=== PATIENT | female | born 1955 | race Caucasian/White ===

== ENCOUNTER 2016-06-22 01:50 | Observation (INO) | payer OTHER ==
[~2016-06-22] VITALS: Ht 165.1 cm; Wt 91.1 kg
[~2016-06-22 01:50] MED LIST: ADULT LOW DOSE81 M1 PO; ADVAIR 250/501 DISK IH; ADVAIR HFA120 INHALA IH; ALAVERT10 MG PO; ALTERA NEBULIZ1 EACH MC; ASPIR-LOW81 MG PO; AVENTYL,PAMELOR50 MG PO; Advair HFA 115/21 IH; Antivert PO; Aspirin E.C. PO; CARDIZEM60 MG PO; CEFTIN500 MG PO; CETIRIZINE HCL10 M2 PO; CYCLOBENZAPRINE10 MG PO; Ceftin PO; DILANTIN30 MG PO; EPIPEN ADU0.3 MG/0.3 IM; ERGOCALCIF50000 UNIT PO; FLEXERIL10 MG PO; FLONASE16 G1 BOTH NARES; Flexeril PO; GABAPENTIN400 MG PO; GABAPENTIN800 MG PO; GEMFIBROZIL600 MG PO; GLUCOSAMINE1000 MG PO; HALOBETASOL PRO15 G1 TP; LAMICTAL XR200 MG PO; LAMICTAL200 MG PO; LIDODERM 5% P1 PATCH TD; LISINOPRIL40 MG PO; LOPID600 MG PO; LaMICtal PO; LaMICtal XR PO; Lopid PO; Lopressor PO; MECLIZINE HCL25 MG PO; MELOXICAM15 MG PO; METOPROLOL TART25 MG PO; METOPROLOL TART50 MG PO; MORPHINE SULFAT30 M5; MORPHINE SULFAT30 M5 PO; MS CONTIN,ORAMO15 M1 PO; OMEPRAZOLE20 M2 PO; OXYCODONE HCL10 MG PO; PERCOCET 10/1 TABLET PO; PERCOCET 5/31 TABLET PO; PHENERGAN25 MG PR; PHENOBARBITAL64.8 MG PO; PHENYTEK300 MG PO; PRAVACHOL40 MG PO; PRAVASTATIN SOD40 MG PO; PREDNISONE10 MG PO; PREDNISONE20 MG PO; PREVACID30 MG PO; PROAIR HFA8.5 GM IH; PROMETHAZINE HC25 M1 PO; Percocet 5/325,Endoc PO; Pravachol PO; PriLOSEC PO; RELPAX40 MG PO; Robaxin PO; Tylenol Regular Stre PO; XARELTO20 MG PO; ZESTRIL,PRINIVI20 MG PO; ZOFRAN4 MG PO; ZYRTEC10 M1 PO; ZYRTEC10 M2 PO; ZYRTEC10 M3 PO; Zocor PO
[2016-06-22 03:27] LABS: HEMATOCRIT 37.9 % (36.0-46.0); MCH 29.5 PG (29.0-34.0); MCHC 33.2 G/DL (30.0-36.0); MCV 88.8 FL (83-99); MEAN PLAT.VOLUME 9.7 uM^3 (9.5-12.4); PLATELET COUNT 364 K/uL (156-360); RBC DIS.WIDTH-CV 13.2 % (11.8-14.6); RBC DIS.WIDTH-SD 42.7 % (39-53); RED BLOOD COUNT 4.27 M/uL (3.80-5.20); WHITE BLOOD COUNT 10.9 K/uL (4.1-10.2)
[2016-06-22 03:43] LABS: D-DIMER ELISA 0.19 mg/L FEU (< 0.57); INTER. NORMALIZED RATIO 1.2; PROTHROMBIN TIME 11.8 (9.2-11.2); PTT 30.3 (25-32)
[2016-06-22 03:45] LABS: CHLORIDE 107 mEq/L (99-109); POTASSIUM 4.4 mEq/L (3.7-5.4); SODIUM 142 mEq/L (136-147)
[2016-06-22 03:47] LABS: GLUCOSE 126 mg/dL (70-99)
[2016-06-22 03:49] LABS: ANION GAP 13 MEQ/L (2-14); TOTAL BILIRUBIN 0.1 mg/dL (0.0-1.0); TROP-I INTERPRETATION NEGATIVE; TROPONIN-I < 0.01 ng/mL (0.0-0.30)
[2016-06-22 03:51] LABS: ALKALINE PHOSPHATASE 90 IU/L (3-129); GFR ESTIMATE (CALCULATED) > 59 mL/min/
[2016-06-22 03:52] LABS: UREA NITROGEN (BUN) 25 mg/dL (9-23)
[2016-06-22 03:54] LABS: LIPASE 28 U/L (1.0-51.0)
[2016-06-22 03:55] LABS: CREATINE KINASE 99 IU/L (1-294); TOTAL CK 99 IU/L (1-294)
[2016-06-22 04:00] LABS: CK-MB 1.8 ng/mL (0.0-4.9)
[2016-06-22] MEDS ORDERED: FENTANYL1 EAC5 TD (04:22)
[2016-06-22] MEDS ORDERED: OMEPRAZOLE20 M2 PO (04:26)
[2016-06-22] MEDS ORDERED: VENTOLIN HFA18 GM IH (04:27)
[2016-06-22 05:29] LABS: HDL CHOLESTEROL 43 MG/DL (Desirable>=50); LDL CHOLESTEROL 101 mg/dL (Desirable<100); NON-HDL CHOLESTEROL 131 mg/dL (Desirable<160); SAMPLE HEMOLYSIS CHECK 1; SAMPLE ICTERIC CHECK 0; SAMPLE LIPEMIA CHECK 0; TOTAL CHOLESTEROL 174 mg/dL (Desirable<200); TRIGLYCERIDES 148 MG/DL (Normal: <150)
[2016-06-22 08:03] LABS: ADD MIUA? YES; BILIRUBIN NEGATIVE; BLOOD NEGATIVE; COLOR YELLOW ((YELLOW)); GLUCOSE (STRIP) NEGATIVE; KETONES NEGATIVE; LEUKOCYTES SMALL; NITRITE NEGATIVE; PROTEIN (STRIP) NEGATIVE; SPECIFIC GRAVITY 1.017 (1.000-1.030); UROBILINOGEN 0.2 MG/DL (0.2-1.0)
[2016-06-22 08:30] LABS: AMPHETAMINES QUANT VALUE 0 NG/ML; BARBITUATES QUANT VALUE 0 NG/ML; BENZODIAZEPINES QUANT VALUE 0 NG/ML; BENZODIAZEPINES, URINE SCREEN Negative (200 ng/mL); MARIJUANA QUANT VALUE 0 NG/ML; OPIATES QUANTITATIVE VALUE 0 NG/ML; PHENCYCLIDINE QUANT VALUE 0 NG/ML
[2016-06-22 08:48] LABS: BACTERIA NONE SEEN /HPF; EPITHELIAL CELLS NONE SEEN /HPF; MUCUS TRACE /LPF; RED BLOOD CELLS 0-5 /HPF (0-5); UCUL ADDED? NO; WHITE BLOOD CELLS 15-20 /HPF (0-5)
[2016-06-22] MEDS ORDERED: CYCLOBENZAPRINE10 MG PO (09:47)
[2016-06-22] MEDS ORDERED: AMBIEN10 MG PO (09:48)
[2016-06-22 10:25] LABS: TROP-I INTERPRETATION NEGATIVE; TROPONIN-I < 0.01 ng/mL (0.0-0.30)
[2016-06-22 10:52] VITALS: BP 149/69
[2016-06-22 16:48] LABS: TROP-I INTERPRETATION NEGATIVE; TROPONIN-I < 0.01 ng/mL (0.0-0.30)
[2016-06-22 20:30] VITALS: BP 119/57
[2016-06-23] VITALS: BP 111/53
[2016-06-23 03:00] VITALS: BP 127/66
[2016-06-23 05:24] LABS: BASOPHIL COUNT 0.1 K/uL (0-0.1); EOSINOPHIL COUNT 0.1 K/uL (0-0.3); HEMATOCRIT 33.1 % (36.0-46.0); IMMATURE GRANULOCYTE (%) 0.2 % (0.0-0.7); INSTRUMENT ABS NEUTROPHIL CT 5.7 K/uL; LYMPHOCYTE COUNT 2.6 K/uL (1.0-2.8); MCH 29.3 PG (29.0-34.0); MCHC 32.9 G/DL (30.0-36.0); MEAN PLAT.VOLUME 9.5 uM^3 (9.5-12.4); MONOCYTE (%) 7.3 % (3-12); MONOCYTE COUNT 0.7 K/uL (0-0.8); NEUTROPHIL (%) 62.1 % (45-76); NEUTROPHIL COUNT 5.7 K/uL (1.8-6.4); PLATELET COUNT 330 K/uL (156-360); RBC DIS.WIDTH-CV 13.2 % (11.8-14.6); RBC DIS.WIDTH-SD 43.6 % (39-53); RED BLOOD COUNT 3.72 M/uL (3.80-5.20); WHITE BLOOD COUNT 9.1 K/uL (4.1-10.2)
[2016-06-23 05:51] LABS: ALKALINE PHOSPHATASE 78 IU/L (3-129); ANION GAP 11 MEQ/L (2-14); CHLORIDE 107 MEQ/L (99-109); GFR ESTIMATE (CALCULATED) > 59 mL/min/; GLUCOSE 97 mg/dL (70-99); POTASSIUM 4.5 MEQ/L (3.7-5.4); SAMPLE HEMOLYSIS CHECK 0; SAMPLE ICTERIC CHECK 0; SAMPLE LIPEMIA CHECK 0; SODIUM 141 MEQ/L (136-147); TOTAL BILIRUBIN 0.3 MG/DL (0.0-1.0); UREA NITROGEN (BUN) 16 mg/dL (9-23)
[2016-06-23 07:05] VITALS: BP 152/70
[2016-06-23] MEDS ORDERED: BUSPAR10 MG PO (08:28)
[2016-06-23] MEDS ORDERED: EFFEXOR37.5 MG PO (08:28)
== END 2016-06-23 10:03 | disposition home or self-care (01) ==
LOC: EME 01:50 → EDOF 04:18 → 5WEST 10:39
PROVIDERS: Emergency Medicine; Hospitalist; Physician Assistant Medical
DX: R07.89 Other chest pain (principal); F41.9 Anxiety disorder, unspecified; R00.2 Palpitations; R11.0 Nausea; R41.0 Disorientation, unspecified; R42 Dizziness and giddiness; R53.1 Weakness; Z95.0 Presence of cardiac pacemaker; Z79.01 Long term (current) use of anticoagulants; F31.9 Bipolar disorder, unspecified; G89.4 Chronic pain syndrome; I11.9 Hypertensive heart disease without heart failure; J44.9 Chronic obstructive pulmonary disease, unspecified; K21.9 Gastro-esophageal reflux disease without esophagitis; G40.909 Epilepsy, unspecified, not intractable, without status epilepticus; E78.5 Hyperlipidemia, unspecified; M54.9 Dorsalgia, unspecified; I27.2 Other secondary pulmonary hypertension; I65.29 Occlusion and stenosis of unspecified carotid artery; E66.9 Obesity, unspecified; G47.30 Sleep apnea, unspecified; I48.0 Paroxysmal atrial fibrillation; Z68.33 Body mass index [BMI] 33.0-33.9, adult; Z87.891 Personal history of nicotine dependence
CPT/HCPCS: 70450; 71020; 80053; 80061; 80306 90; 81003; 82550; 82553; 82948; 83690; 84484; 85025; 85027; 85379; 85610; 85730; 93005; 94640; 99202; 99281; 99285; G0378; J2405; J3010; J7030

== ENCOUNTER 2016-07-08 05:30 | Inpatient (IN) | payer OTHER ==
[2016-07-08] VITALS (13 sets, daily range): BP systolic 112–172; BP diastolic 68–123
[~2016-07-08] VITALS: Ht 165.1 cm; Wt 89.8 kg
[~2016-07-08 05:30] MED LIST changes: +AMBIEN10 MG PO; +BUSPAR10 MG PO; +EFFEXOR37.5 MG PO; +FENTANYL1 EAC5 TD; +VENTOLIN HFA18 GM IH
[2016-07-08 06:34] LABS: CHLORIDE 113 mEq/L (99-109); POTASSIUM 4.5 mEq/L (3.7-5.4); SODIUM 142 mEq/L (136-147)
[2016-07-08 06:37] LABS: GLUCOSE 119 mg/dL (70-99)
[2016-07-08 06:38] LABS: ANION GAP 9 MEQ/L (2-14); TOTAL BILIRUBIN 0.1 mg/dL (0.0-1.0)
[2016-07-08 06:40] LABS: ALKALINE PHOSPHATASE 55 IU/L (3-129); GFR ESTIMATE (CALCULATED) > 59 mL/min/
[2016-07-08 06:41] LABS: UREA NITROGEN (BUN) 43 mg/dL (9-23)
[2016-07-08 06:42] LABS: DIRECT BILIRUBIN 0.1 mg/dL (0.0-0.3)
[2016-07-08 06:54] LABS: INTER. NORMALIZED RATIO 1.3; PROTHROMBIN TIME 13.4 (9.2-11.2)
[2016-07-08 07:06] LABS: HEMATOCRIT 11.3 % (36.0-46.0); MCH 30.6 PG (29.0-34.0); MCHC 32.7 G/DL (30.0-36.0); MCV 93.4 FL (83-99); MEAN PLAT.VOLUME 9.9 uM^3 (9.5-12.4); PLATELET COUNT 249 K/uL (156-360); RBC DIS.WIDTH-CV 14.7 % (11.8-14.6); RBC DIS.WIDTH-SD 47.3 % (39-53); RED BLOOD COUNT 1.21 M/uL (3.80-5.20); WHITE BLOOD COUNT 14.7 K/uL (4.1-10.2)
[2016-07-08] MEDS ORDERED: LAMICTAL XR200 MG PO (11:20)
[2016-07-08] MEDS ORDERED: OXYCODONE HCL10 MG PO (16:01)
[2016-07-08] MEDS ORDERED: MOBIC15 MG PO (16:02)
[2016-07-08] MEDS ORDERED: EFFEXOR37.5 MG PO (16:02)
[2016-07-08] MEDS ORDERED: LUNESTA3 MG PO (16:02)
[2016-07-08] MEDS ORDERED: ADVAIR HFA120 INHALA IH (16:03)
[2016-07-08] MEDS ORDERED: EPIPEN ADU0.3 MG/0.3 IM (16:03)
[2016-07-08 17:01] LABS: METH RESISTANT S AUREUS PCR NEGATIVE (NEGATIVE)
[2016-07-08 17:02] LABS: PROBE CHECK PASS; SPECIMEN PROCESSING CONTROL PASS
[2016-07-08 18:36] LABS: HEMATOCRIT 29.3 % (36.0-46.0); MCV 85.7 FL (83-99)
[2016-07-09] VITALS (22 sets, daily range): BP systolic 105–190; BP diastolic 52–96
[2016-07-09 07:44] LABS: BASOPHIL COUNT 0.1 K/uL (0-0.1); EOSINOPHIL (%) 1.5 % (0-5); EOSINOPHIL COUNT 0.2 K/uL (0-0.3); HEMATOCRIT 31.4 % (36.0-46.0); IMMATURE GRANULOCYTE (%) 2.1 % (0.0-0.7); IMMATURE GRANULOCYTE COUNT 0.3 K/uL; INSTRUMENT ABS NEUTROPHIL CT 7.7 K/uL; LYMPHOCYTE COUNT 2.8 K/uL (1.0-2.8); MCH 29.1 PG (29.0-34.0); MCHC 34.4 G/DL (30.0-36.0); MCV 84.6 FL (83-99); MEAN PLAT.VOLUME 9.2 uM^3 (9.5-12.4); MONOCYTE COUNT 0.7 K/uL (0-0.8); NEUTROPHIL (%) 66.1 % (45-76); NEUTROPHIL COUNT 7.7 K/uL (1.8-6.4); NRBC (%) 0.3 /100 WBC (0-0); PLATELET COUNT 183 K/uL (156-360); RBC DIS.WIDTH-CV 15.3 % (11.8-14.6); RBC DIS.WIDTH-SD 45.8 % (39-53); WHITE BLOOD COUNT 11.7 K/uL (4.1-10.2)
[2016-07-09 07:50] LABS: RED BLOOD COUNT 3.71 M/uL (3.80-5.20)
[2016-07-09 08:26] LABS: ANION GAP 8 MEQ/L (2-14); CHLORIDE 110 MEQ/L (99-109); GFR ESTIMATE (CALCULATED) > 59 mL/min/; GLUCOSE 105 mg/dL (70-99); MAGNESIUM 1.9 mg/dl (1.3-2.7); POTASSIUM 4.1 MEQ/L (3.7-5.4); SAMPLE HEMOLYSIS CHECK 0; SAMPLE ICTERIC CHECK 0; SAMPLE LIPEMIA CHECK 0; SODIUM 142 MEQ/L (136-147)
[2016-07-09 08:29] LABS: UREA NITROGEN (BUN) 20 mg/dL (9-23)
[2016-07-09 12:59] LABS: IRON 114 MCG/DL (35-150)
[2016-07-09 13:06] LABS: FERRITIN 100 NG/ML (10-291)
[2016-07-09 20:34] LABS: HEMATOCRIT 28.8 % (36.0-46.0); MCH 29.6 PG (29.0-34.0); MCHC 34.4 G/DL (30.0-36.0); MCV 86.2 FL (83-99); MEAN PLAT.VOLUME 9.2 uM^3 (9.5-12.4); PLATELET COUNT 164 K/uL (156-360); RBC DIS.WIDTH-CV 15.7 % (11.8-14.6); RBC DIS.WIDTH-SD 47.9 % (39-53); RED BLOOD COUNT 3.34 M/uL (3.80-5.20); WHITE BLOOD COUNT 9.5 K/uL (4.1-10.2)
[2016-07-10 00:50] LABS: TROP-I INTERPRETATION NEGATIVE; TROPONIN-I 0.12 ng/mL (0.0-0.30)
[2016-07-10 04:20] VITALS: BP 115/52
[2016-07-10 06:16] LABS: HEMATOCRIT 29.6 % (36.0-46.0); MCH 29.2 PG (29.0-34.0); MCHC 33.4 G/DL (30.0-36.0); MCV 87.3 FL (83-99); MEAN PLAT.VOLUME 9.4 uM^3 (9.5-12.4); PLATELET COUNT 184 K/uL (156-360); RBC DIS.WIDTH-CV 15.7 % (11.8-14.6); RBC DIS.WIDTH-SD 48.9 % (39-53); RED BLOOD COUNT 3.39 M/uL (3.80-5.20); WHITE BLOOD COUNT 8.4 K/uL (4.1-10.2)
[2016-07-10 06:43] LABS: TROP-I INTERPRETATION NEGATIVE
[2016-07-10 07:04] LABS: ANION GAP 10 MEQ/L (2-14); CHLORIDE 107 MEQ/L (99-109); SAMPLE HEMOLYSIS CHECK 1; SAMPLE ICTERIC CHECK 0; SAMPLE LIPEMIA CHECK 0; SODIUM 142 MEQ/L (136-147)
[2016-07-10 07:05] LABS: POTASSIUM 3.9 MEQ/L (3.7-5.4)
[2016-07-10 07:11] LABS: GFR ESTIMATE (CALCULATED) > 59 mL/min/; GLUCOSE 90 mg/dL (70-99); UREA NITROGEN (BUN) 13 mg/dL (9-23)
[2016-07-10 08:00] VITALS: BP 139/63
[2016-07-10 12:00] VITALS: BP 112/53
[2016-07-10 12:43] LABS: TROP-I INTERPRETATION NEGATIVE; TROPONIN-I 0.08 ng/mL (0.0-0.30)
[2016-07-10 18:00] VITALS: BP 128/52
[2016-07-10 20:00] VITALS: BP 126/59
[2016-07-11] VITALS (8 sets, daily range): BP systolic 106–161; BP diastolic 43–78
[2016-07-11 06:13] LABS: EOSINOPHIL (%) 4.1 % (0-5); EOSINOPHIL COUNT 0.3 K/uL (0-0.3); HEMATOCRIT 29.1 % (36.0-46.0); IMMATURE GRANULOCYTE (%) 1.2 % (0.0-0.7); IMMATURE GRANULOCYTE COUNT 0.1 K/uL; INSTRUMENT ABS NEUTROPHIL CT 3.4 K/uL; LYMPHOCYTE COUNT 1.8 K/uL (1.0-2.8); MCH 29.5 PG (29.0-34.0); MCV 86.6 FL (83-99); MEAN PLAT.VOLUME 9.2 uM^3 (9.5-12.4); MONOCYTE (%) 8.4 % (3-12); MONOCYTE COUNT 0.5 K/uL (0-0.8); NEUTROPHIL (%) 56.7 % (45-76); NEUTROPHIL COUNT 3.4 K/uL (1.8-6.4); PLATELET COUNT 225 K/uL (156-360); RBC DIS.WIDTH-SD 46.4 % (39-53); RED BLOOD COUNT 3.36 M/uL (3.80-5.20); WHITE BLOOD COUNT 6.1 K/uL (4.1-10.2)
[2016-07-11 06:15] LABS: ANION GAP 7 MEQ/L (2-14); CHLORIDE 106 MEQ/L (99-109); GFR ESTIMATE (CALCULATED) > 59 mL/min/; GLUCOSE 91 mg/dL (70-99); POTASSIUM 3.5 MEQ/L (3.7-5.4); SAMPLE HEMOLYSIS CHECK 0; SAMPLE ICTERIC CHECK 0; SAMPLE LIPEMIA CHECK 0; SODIUM 140 MEQ/L (136-147); UREA NITROGEN (BUN) 9 mg/dL (9-23)
[2016-07-12 03:25] VITALS: BP 115/56
[2016-07-12 05:29] LABS: EOSINOPHIL (%) 2.1 % (0-5); EOSINOPHIL COUNT 0.2 K/uL (0-0.3); HEMATOCRIT 28.7 % (36.0-46.0); IMMATURE GRANULOCYTE (%) 0.5 % (0.0-0.7); INSTRUMENT ABS NEUTROPHIL CT 4.9 K/uL; MCH 29.1 PG (29.0-34.0); MCHC 33.4 G/DL (30.0-36.0); MEAN PLAT.VOLUME 9.2 uM^3 (9.5-12.4); MONOCYTE (%) 7.6 % (3-12); MONOCYTE COUNT 0.6 K/uL (0-0.8); NEUTROPHIL (%) 63.9 % (45-76); NEUTROPHIL COUNT 4.9 K/uL (1.8-6.4); PLATELET COUNT 249 K/uL (156-360); WHITE BLOOD COUNT 7.7 K/uL (4.1-10.2)
[2016-07-12 05:40] LABS: ANION GAP 7 MEQ/L (2-14); CHLORIDE 106 MEQ/L (99-109); GFR ESTIMATE (CALCULATED) > 59 mL/min/; POTASSIUM 3.5 MEQ/L (3.7-5.4); SAMPLE HEMOLYSIS CHECK 0; SAMPLE ICTERIC CHECK 0; SAMPLE LIPEMIA CHECK 0; SODIUM 142 MEQ/L (136-147); UREA NITROGEN (BUN) 12 mg/dL (9-23)
[2016-07-12 05:49] LABS: GLUCOSE 116 mg/dL (70-99)
[2016-07-12 07:19] VITALS: BP 120/59
[2016-07-12 11:17] VITALS: BP 125/61
[2016-07-12 15:12] VITALS: BP 111/53
[2016-07-12 19:39] VITALS: BP 115/54
[2016-07-13] VITALS (8 sets, daily range): BP systolic 123–157; BP diastolic 58–74
[2016-07-13 07:44] LABS: HEMATOCRIT 29.6 % (36.0-46.0); MCH 29.1 PG (29.0-34.0); MCHC 32.8 G/DL (30.0-36.0); MCV 88.9 FL (83-99); MEAN PLAT.VOLUME 8.7 uM^3 (9.5-12.4); PLATELET COUNT 288 K/uL (156-360); RBC DIS.WIDTH-CV 15.1 % (11.8-14.6); RBC DIS.WIDTH-SD 46.5 % (39-53); RED BLOOD COUNT 3.33 M/uL (3.80-5.20); WHITE BLOOD COUNT 6.8 K/uL (4.1-10.2)
[2016-07-13 08:28] LABS: ANION GAP 9 MEQ/L (2-14); CHLORIDE 107 MEQ/L (99-109); GFR ESTIMATE (CALCULATED) > 59 mL/min/; GLUCOSE 100 mg/dL (70-99); MAGNESIUM 1.9 mg/dl (1.3-2.7); POTASSIUM 4.4 MEQ/L (3.7-5.4); SAMPLE HEMOLYSIS CHECK 2; SAMPLE ICTERIC CHECK 0; SAMPLE LIPEMIA CHECK 0; SODIUM 141 MEQ/L (136-147); UREA NITROGEN (BUN) 11 mg/dL (9-23)
[2016-07-14] VITALS (7 sets, daily range): BP systolic 125–167; BP diastolic 65–94
[2016-07-14 06:09] LABS: EOSINOPHIL COUNT 0.3 K/uL (0-0.3); HEMATOCRIT 32.2 % (36.0-46.0); IMMATURE GRANULOCYTE (%) 0.4 % (0.0-0.7); INSTRUMENT ABS NEUTROPHIL CT 3.9 K/uL; LYMPHOCYTE COUNT 2.3 K/uL (1.0-2.8); MCH 29.4 PG (29.0-34.0); MCHC 33.5 G/DL (30.0-36.0); MCV 87.7 FL (83-99); MEAN PLAT.VOLUME 8.8 uM^3 (9.5-12.4); MONOCYTE (%) 7.4 % (3-12); MONOCYTE COUNT 0.5 K/uL (0-0.8); NEUTROPHIL (%) 55.3 % (45-76); NEUTROPHIL COUNT 3.9 K/uL (1.8-6.4); PLATELET COUNT 342 K/uL (156-360); RBC DIS.WIDTH-CV 14.5 % (11.8-14.6); RBC DIS.WIDTH-SD 44.9 % (39-53); RED BLOOD COUNT 3.67 M/uL (3.80-5.20)
[2016-07-14 06:57] LABS: ANION GAP 6 MEQ/L (2-14); CHLORIDE 104 MEQ/L (99-109); GFR ESTIMATE (CALCULATED) > 59 mL/min/; GLUCOSE 91 mg/dL (70-99); POTASSIUM 4.4 MEQ/L (3.7-5.4); SAMPLE HEMOLYSIS CHECK 0; SAMPLE ICTERIC CHECK 0; SAMPLE LIPEMIA CHECK 0; SODIUM 141 MEQ/L (136-147); UREA NITROGEN (BUN) 11 mg/dL (9-23)
[2016-07-15 03:48] VITALS: BP 147/72
[2016-07-15 07:04] VITALS: BP 150/65
[2016-07-15 07:29] LABS: EOSINOPHIL (%) 4.8 % (0-5); EOSINOPHIL COUNT 0.3 K/uL (0-0.3); HEMATOCRIT 32.6 % (36.0-46.0); IMMATURE GRANULOCYTE (%) 0.2 % (0.0-0.7); INSTRUMENT ABS NEUTROPHIL CT 3.6 K/uL; LYMPHOCYTE COUNT 2.1 K/uL (1.0-2.8); MCH 29.8 PG (29.0-34.0); MCV 87.6 FL (83-99); MONOCYTE (%) 6.1 % (3-12); MONOCYTE COUNT 0.4 K/uL (0-0.8); NEUTROPHIL (%) 55.7 % (45-76); NEUTROPHIL COUNT 3.6 K/uL (1.8-6.4); PLATELET COUNT 395 K/uL (156-360); RBC DIS.WIDTH-CV 14.6 % (11.8-14.6); RBC DIS.WIDTH-SD 45.3 % (39-53); RED BLOOD COUNT 3.72 M/uL (3.80-5.20); WHITE BLOOD COUNT 6.5 K/uL (4.1-10.2)
[2016-07-15 07:54] LABS: ANION GAP 10 MEQ/L (2-14); CHLORIDE 102 MEQ/L (99-109); GFR ESTIMATE (CALCULATED) > 59 mL/min/; GLUCOSE 122 mg/dL (70-99); SAMPLE HEMOLYSIS CHECK 1; SAMPLE ICTERIC CHECK 0; SAMPLE LIPEMIA CHECK 0; SODIUM 139 MEQ/L (136-147); UREA NITROGEN (BUN) 15 mg/dL (9-23)
[2016-07-15 07:55] LABS: POTASSIUM 4.3 MEQ/L (3.7-5.4)
[2016-07-15 08:30] LABS: MAGNESIUM 1.9 mg/dl (1.3-2.7)
[2016-07-15 11:00] VITALS: BP 176/77
[2016-07-15 15:21] VITALS: BP 179/71
[2016-07-15 19:47] VITALS: BP 132/56
[2016-07-15 23:45] VITALS: BP 132/76
[2016-07-16 03:45] VITALS: BP 149/70
[2016-07-16 07:34] LABS: EOSINOPHIL (%) 3.7 % (0-5); EOSINOPHIL COUNT 0.3 K/uL (0-0.3); HEMATOCRIT 33.7 % (36.0-46.0); IMMATURE GRANULOCYTE (%) 0.1 % (0.0-0.7); INSTRUMENT ABS NEUTROPHIL CT 4.5 K/uL; LYMPHOCYTE COUNT 2.4 K/uL (1.0-2.8); MCH 29.6 PG (29.0-34.0); MCHC 33.2 G/DL (30.0-36.0); MCV 88.9 FL (83-99); MEAN PLAT.VOLUME 8.8 uM^3 (9.5-12.4); MONOCYTE COUNT 0.5 K/uL (0-0.8); NEUTROPHIL (%) 58.5 % (45-76); NEUTROPHIL COUNT 4.5 K/uL (1.8-6.4); PLATELET COUNT 342 K/uL (156-360); RBC DIS.WIDTH-CV 14.6 % (11.8-14.6); RED BLOOD COUNT 3.79 M/uL (3.80-5.20); WHITE BLOOD COUNT 7.7 K/uL (4.1-10.2)
[2016-07-16 07:50] VITALS: BP 132/69
[2016-07-16 08:05] LABS: ANION GAP 11 MEQ/L (2-14); CHLORIDE 102 MEQ/L (99-109); GFR ESTIMATE (CALCULATED) > 59 mL/min/; GLUCOSE 86 mg/dL (70-99); POTASSIUM 4.4 MEQ/L (3.7-5.4); SAMPLE HEMOLYSIS CHECK 0; SAMPLE ICTERIC CHECK 0; SAMPLE LIPEMIA CHECK 0; SODIUM 141 MEQ/L (136-147); UREA NITROGEN (BUN) 10 mg/dL (9-23)
[2016-07-16 15:22] VITALS: BP 121/59
[2016-07-17 00:08] VITALS: BP 129/60
[2016-07-17 06:58] LABS: BASOPHIL COUNT 0.1 K/uL (0-0.1); EOSINOPHIL (%) 4.1 % (0-5); EOSINOPHIL COUNT 0.3 K/uL (0-0.3); HEMATOCRIT 35.5 % (36.0-46.0); IMMATURE GRANULOCYTE (%) 0.4 % (0.0-0.7); INSTRUMENT ABS NEUTROPHIL CT 4.8 K/uL; LYMPHOCYTE COUNT 2.1 K/uL (1.0-2.8); MCHC 32.4 G/DL (30.0-36.0); MCV 89.4 FL (83-99); MONOCYTE (%) 6.6 % (3-12); MONOCYTE COUNT 0.5 K/uL (0-0.8); NEUTROPHIL (%) 61.2 % (45-76); NEUTROPHIL COUNT 4.8 K/uL (1.8-6.4); RBC DIS.WIDTH-CV 14.3 % (11.8-14.6); RBC DIS.WIDTH-SD 45.9 % (39-53); RED BLOOD COUNT 3.97 M/uL (3.80-5.20); WHITE BLOOD COUNT 7.9 K/uL (4.1-10.2)
[2016-07-17 07:25] LABS: MEAN PLAT.VOLUME 8.7 uM^3 (9.5-12.4); PLATELET COUNT 381 K/uL (156-360)
[2016-07-17 07:28] LABS: ANION GAP 11 MEQ/L (2-14); CHLORIDE 103 MEQ/L (99-109); GFR ESTIMATE (CALCULATED) > 59 mL/min/; GLUCOSE 99 mg/dL (70-99); POTASSIUM 4.7 MEQ/L (3.7-5.4); SAMPLE HEMOLYSIS CHECK 0; SAMPLE ICTERIC CHECK 0; SAMPLE LIPEMIA CHECK 0; SODIUM 143 MEQ/L (136-147); UREA NITROGEN (BUN) 11 mg/dL (9-23)
[2016-07-17 08:00] VITALS: BP 105/57
[2016-07-17 16:00] VITALS: BP 119/58
[2016-07-17 23:25] VITALS: BP 138/65
[2016-07-18 07:13] LABS: BASOPHIL COUNT 0.1 K/uL (0-0.1); EOSINOPHIL (%) 4.7 % (0-5); EOSINOPHIL COUNT 0.3 K/uL (0-0.3); HEMATOCRIT 36.9 % (36.0-46.0); IMMATURE GRANULOCYTE (%) 0.1 % (0.0-0.7); INSTRUMENT ABS NEUTROPHIL CT 3.6 K/uL; LYMPHOCYTE COUNT 2.4 K/uL (1.0-2.8); MCHC 32.2 G/DL (30.0-36.0); MEAN PLAT.VOLUME 8.7 uM^3 (9.5-12.4); MONOCYTE (%) 7.1 % (3-12); MONOCYTE COUNT 0.5 K/uL (0-0.8); NEUTROPHIL (%) 52.8 % (45-76); NEUTROPHIL COUNT 3.6 K/uL (1.8-6.4); PLATELET COUNT 312 K/uL (156-360); RBC DIS.WIDTH-CV 14.3 % (11.8-14.6); RBC DIS.WIDTH-SD 45.7 % (39-53); WHITE BLOOD COUNT 6.9 K/uL (4.1-10.2)
[2016-07-18 07:32] LABS: ANION GAP 10 MEQ/L (2-14); CHLORIDE 104 MEQ/L (99-109); POTASSIUM 4.1 MEQ/L (3.7-5.4); SAMPLE HEMOLYSIS CHECK 0; SAMPLE ICTERIC CHECK 0; SAMPLE LIPEMIA CHECK 0; SODIUM 138 MEQ/L (136-147)
[2016-07-18 07:37] LABS: GFR ESTIMATE (CALCULATED) > 59 mL/min/; GLUCOSE 98 mg/dL (70-99); UREA NITROGEN (BUN) 12 mg/dL (9-23)
[2016-07-18 08:00] VITALS: BP 111/52
[2016-07-18 16:00] VITALS: BP 126/63
[2016-07-18] MEDS ORDERED: ROPINIROLE HCL1 MG PO ×2 (17:24→18:45)
[2016-07-18] MEDS ORDERED: CLONIDINE1 EACH TD ×2 (17:25→18:45)
[2016-07-18] MEDS ORDERED: CARDIZEM30 MG PO ×2 (17:25→18:45)
[2016-07-18] MEDS ORDERED: DIFLUCAN200 MG PO (18:26)
[2016-07-18] MEDS ORDERED: NYSTATIN15 GM TP (18:27)
== END 2016-07-18 19:20 | disposition home or self-care (01) | DRG 378 ==
LOC: EME 05:30 → EDOF 10:39 → 4WEST 10:39 → 2EASTP 10:39 → 4WEST 12:22 → 3EAST 07-11 14:34 → 2EASTP 07-12 23:51
PROVIDERS: Emergency Medicine; Hospitalist; Internal Medicine; Internal Medicine Critical Care Medicine; Internal Medicine Nephrology; Internal Medicine Pulmonary Disease
PROC: 30233N1 Transfusion of Nonautologous Red Blood Cells into Peripheral Vein, Percutaneous Approach (ICD-10-PCS; principal; 2016-07-08)
PROC: 0DJ08ZZ Inspection of Upper Intestinal Tract, Via Natural or Artificial Opening Endoscopic (ICD-10-PCS; 2016-07-09)
PROC: 0DJD8ZZ Inspection of Lower Intestinal Tract, Via Natural or Artificial Opening Endoscopic (ICD-10-PCS; 2016-07-10)
DX: K92.1 Melena (principal); D62 Acute posthemorrhagic anemia; R42 Dizziness and giddiness; I48.3 Typical atrial flutter; I48.0 Paroxysmal atrial fibrillation; I11.9 Hypertensive heart disease without heart failure; E78.2 Mixed hyperlipidemia; G47.30 Sleep apnea, unspecified; J44.9 Chronic obstructive pulmonary disease, unspecified; K21.0 Gastro-esophageal reflux disease with esophagitis; K63.5 Polyp of colon; I34.1 Nonrheumatic mitral (valve) prolapse; I27.2 Other secondary pulmonary hypertension; E83.39 Other disorders of phosphorus metabolism; G40.909 Epilepsy, unspecified, not intractable, without status epilepticus; G89.29 Other chronic pain; M54.9 Dorsalgia, unspecified; D32.0 Benign neoplasm of cerebral meninges; F31.9 Bipolar disorder, unspecified; F41.9 Anxiety disorder, unspecified; E66.9 Obesity, unspecified; Z68.32 Body mass index [BMI] 32.0-32.9, adult; Z95.0 Presence of cardiac pacemaker; Z87.891 Personal history of nicotine dependence; Z79.01 Long term (current) use of anticoagulants; Z88.0 Allergy status to penicillin; Z88.2 Allergy status to sulfonamides
CPT/HCPCS: 70450; 74241; 74249; 80048; 80076; 82728; 83540; 83735; 84100; 84466; 84484; 85014; 85018; 85025; 85027; 85610; 85730; 86900; 86901; 86920; 87641; 93005; 94799; 99202; 99281; 99285; C9113; J1200; J2060; J2354; J2405; J3010; J3475; J7030; J7050; P9016; P9017; P9035

== ENCOUNTER 2016-07-29 14:59 | Emergency (ER) | payer OTHER ==
[~2016-07-29] VITALS: Ht 167.6 cm; Wt 88.5 kg
[~2016-07-29 14:59] MED LIST changes: +CARDIZEM30 MG PO; +CLONIDINE1 EACH TD; +DIFLUCAN200 MG PO; +LUNESTA3 MG PO; +MOBIC15 MG PO; +NYSTATIN15 GM TP; +ROPINIROLE HCL1 MG PO
[2016-07-29 15:42] LABS: ADD MIUA? YES; BILIRUBIN NEGATIVE; BLOOD SMALL; COLOR YELLOW ((YELLOW)); GLUCOSE (STRIP) NEGATIVE; KETONES 20; LEUKOCYTES TRACE; NITRITE NEGATIVE; PROTEIN (STRIP) 30; SPECIFIC GRAVITY 1.028 (1.000-1.030)
[2016-07-29 15:50] LABS: EOSINOPHIL COUNT 0.2 K/uL (0-0.3); HEMATOCRIT 37.8 % (36.0-46.0); IMMATURE GRANULOCYTE (%) 0.3 % (0.0-0.7); INSTRUMENT ABS NEUTROPHIL CT 4.5 K/uL; LYMPHOCYTE COUNT 2.7 K/uL (1.0-2.8); MCH 29.1 PG (29.0-34.0); MCHC 33.3 G/DL (30.0-36.0); MCV 87.3 FL (83-99); MEAN PLAT.VOLUME 8.8 uM^3 (9.5-12.4); MONOCYTE (%) 6.7 % (3-12); MONOCYTE COUNT 0.5 K/uL (0-0.8); NEUTROPHIL (%) 56.6 % (45-76); NEUTROPHIL COUNT 4.5 K/uL (1.8-6.4); PLATELET COUNT 366 K/uL (156-360); RBC DIS.WIDTH-CV 13.6 % (11.8-14.6); RBC DIS.WIDTH-SD 43.2 % (39-53); RED BLOOD COUNT 4.33 M/uL (3.80-5.20); WHITE BLOOD COUNT 7.9 K/uL (4.1-10.2)
[2016-07-29 16:03] LABS: CHLORIDE 106 mEq/L (99-109); POTASSIUM 3.8 mEq/L (3.7-5.4); SODIUM 142 mEq/L (136-147)
[2016-07-29 16:06] LABS: GLUCOSE 102 mg/dL (70-99)
[2016-07-29 16:07] LABS: ANION GAP 12 MEQ/L (2-14)
[2016-07-29 16:08] LABS: TOTAL BILIRUBIN 0.4 mg/dL (0.0-1.0)
[2016-07-29 16:09] LABS: ALKALINE PHOSPHATASE 95 IU/L (3-129); GFR ESTIMATE (CALCULATED) > 59 mL/min/
[2016-07-29 16:10] LABS: UREA NITROGEN (BUN) 16 mg/dL (9-23)
[2016-07-29 16:13] LABS: BACTERIA RARE /HPF; EPITHELIAL CELLS 1+ /HPF; MUCUS 4+ /LPF; UCUL ADDED? NO
[2016-07-29 16:13] LABS: CREATINE KINASE 56 IU/L (1-294); LIPASE 16 U/L (1.0-51.0); TOTAL CK 56 IU/L (1-294)
[2016-07-29 16:19] LABS: CK-MB 0.9 ng/mL (0.0-4.9)
[2016-07-29 17:59] VITALS: BP 151/51
== END 2016-07-29 18:02 | disposition home or self-care (01) ==
LOC: EME 14:59
PROVIDERS: Emergency Medicine
DX: R41.82 Altered mental status, unspecified (principal); T40.4X5A Adverse effect of other synthetic narcotics, initial encounter; I10 Essential (primary) hypertension; J44.9 Chronic obstructive pulmonary disease, unspecified; J45.909 Unspecified asthma, uncomplicated; Z79.01 Long term (current) use of anticoagulants; Z87.891 Personal history of nicotine dependence
CPT/HCPCS: 70450; 71010; 80053; 81003; 82140; 82550; 82553; 83605; 83690; 85025; 93005; 99281; 99285; J7030

== ENCOUNTER 2016-12-15 18:46 | Emergency (ER) | payer OTHER ==
[~2016-12-15] VITALS: Ht 165.1 cm; Wt 94.9 kg
[2016-12-15 19:46] LABS: EOSINOPHIL (%) 2.2 % (0-5); EOSINOPHIL COUNT 0.3 K/uL (0-0.3); HEMATOCRIT 33.3 % (36.0-46.0); IMMATURE GRANULOCYTE (%) 0.5 % (0.0-0.7); IMMATURE GRANULOCYTE COUNT 0.1 K/uL; INSTRUMENT ABS NEUTROPHIL CT 7.7 K/uL; LYMPHOCYTE COUNT 2.5 K/uL (1.0-2.8); MCH 27.9 PG (29.0-34.0); MCHC 32.7 G/DL (30.0-36.0); MCV 85.4 FL (83-99); MEAN PLAT.VOLUME 9.1 uM^3 (9.5-12.4); MONOCYTE (%) 7.4 % (3-12); MONOCYTE COUNT 0.8 K/uL (0-0.8); NEUTROPHIL (%) 67.7 % (45-76); NEUTROPHIL COUNT 7.7 K/uL (1.8-6.4); PLATELET COUNT 322 K/uL (156-360); RBC DIS.WIDTH-CV 14.6 % (11.8-14.6); RBC DIS.WIDTH-SD 45.2 % (39-53); WHITE BLOOD COUNT 11.4 K/uL (4.1-10.2)
[2016-12-15 19:55] LABS: CHLORIDE 107 mEq/L (99-109); POTASSIUM 3.6 mEq/L (3.7-5.4); SODIUM 139 mEq/L (136-147)
[2016-12-15 19:57] LABS: GLUCOSE 123 mg/dL (70-99)
[2016-12-15 19:58] LABS: ANION GAP 7 MEQ/L (2-14)
[2016-12-15 19:59] LABS: TOTAL BILIRUBIN 0.2 mg/dL (0.0-1.0)
[2016-12-15 20:01] LABS: ALKALINE PHOSPHATASE 104 IU/L (3-129); GFR ESTIMATE (CALCULATED) > 59 mL/min/
[2016-12-15 20:02] LABS: UREA NITROGEN (BUN) 12 mg/dL (9-23)
[2016-12-15 20:03] LABS: D-DIMER ELISA < 150.00 ng/mLDDU (<230)
[2016-12-15 20:09] LABS: TROP-I INTERPRETATION NEGATIVE; TROPONIN-I < 0.01 ng/mL (0.0-0.30)
[2016-12-15] MEDS ORDERED: ALBUTEROL2.5 MG/3 M IH (22:09)
[2016-12-15] MEDS ORDERED: PREDNISONE20 MG PO (22:09)
[2016-12-15] MEDS ORDERED: LEVAQUIN750 MG PO (22:09)
[2016-12-15] MEDS ORDERED: ATROVENT 00.5 MG/2.5 IH (22:09)
[2016-12-15 22:27] VITALS: BP 137/57
== END 2016-12-15 22:28 | disposition home or self-care (01) ==
LOC: EME 18:46
PROVIDERS: Emergency Medicine
DX: J18.9 Pneumonia, unspecified organism (principal); J45.909 Unspecified asthma, uncomplicated; J44.9 Chronic obstructive pulmonary disease, unspecified; K21.9 Gastro-esophageal reflux disease without esophagitis; F32.9 Major depressive disorder, single episode, unspecified; I10 Essential (primary) hypertension; I34.1 Nonrheumatic mitral (valve) prolapse; Z95.0 Presence of cardiac pacemaker; Z95.1 Presence of aortocoronary bypass graft; Z79.891 Long term (current) use of opiate analgesic; Z88.8 Allergy status to other drugs, medicaments and biological substances; Z87.891 Personal history of nicotine dependence; E78.5 Hyperlipidemia, unspecified; Z88.0 Allergy status to penicillin
CPT/HCPCS: 71020; 80053; 83880; 84484; 85025; 85379; 93005; 94640; 99281; 99285

== ENCOUNTER 2016-12-22 21:36 | Observation (INO) | payer OTHER ==
[~2016-12-22] VITALS: Ht 165.1 cm; Wt 95.1 kg
[~2016-12-22 21:36] MED LIST changes: +ALBUTEROL2.5 MG/3 M IH; +ATROVENT 00.5 MG/2.5 IH; +LEVAQUIN750 MG PO
[2016-12-22 21:56] LABS: HEMATOCRIT 33.1 % (36.0-46.0); MCH 27.8 PG (29.0-34.0); MCHC 31.4 G/DL (30.0-36.0); MCV 88.5 FL (83-99); MEAN PLAT.VOLUME 8.4 uM^3 (9.5-12.4); PLATELET COUNT 275 K/uL (156-360); RBC DIS.WIDTH-SD 45.6 % (39-53); RED BLOOD COUNT 3.74 M/uL (3.80-5.20); WHITE BLOOD COUNT 8.3 K/uL (4.1-10.2)
[2016-12-22 22:06] LABS: CHLORIDE 107 mEq/L (99-109); POTASSIUM 3.9 mEq/L (3.7-5.4); SODIUM 140 mEq/L (136-147)
[2016-12-22 22:08] LABS: GLUCOSE 120 mg/dL (70-99)
[2016-12-22 22:09] LABS: ANION GAP 4 MEQ/L (2-14)
[2016-12-22 22:12] LABS: GFR ESTIMATE (CALCULATED) > 59 mL/min/; UREA NITROGEN (BUN) 7 mg/dL (9-23)
[2016-12-23 01:39] LABS: TROP-I INTERPRETATION NEGATIVE; TROPONIN-I < 0.01 ng/mL (0.0-0.30)
[2016-12-23 04:00] VITALS: BP 130/61
[2016-12-23 04:36] LABS: HDL CHOLESTEROL 36 MG/DL (Desirable>=50); LDL CHOLESTEROL 57 mg/dL (Desirable<100); NON-HDL CHOLESTEROL 96 mg/dL (Desirable<160); SAMPLE HEMOLYSIS CHECK 0; SAMPLE ICTERIC CHECK 0; SAMPLE LIPEMIA CHECK 0; TOTAL CHOLESTEROL 132 mg/dL (Desirable<200); TRIGLYCERIDES 193 MG/DL (Normal: <150)
[2016-12-23 06:19] LABS: ALKALINE PHOSPHATASE 99 IU/L (3-129); ANION GAP 11 MEQ/L (2-14); CHLORIDE 104 MEQ/L (99-109); GFR ESTIMATE (CALCULATED) > 59 mL/min/; GLUCOSE 129 mg/dL (70-99); POTASSIUM 4.2 MEQ/L (3.7-5.4); SAMPLE HEMOLYSIS CHECK 0; SAMPLE ICTERIC CHECK 0; SAMPLE LIPEMIA CHECK 0; SODIUM 142 MEQ/L (136-147); TOTAL BILIRUBIN 0.4 MG/DL (0.0-1.0); UREA NITROGEN (BUN) 8 mg/dL (9-23)
[2016-12-23 08:00] VITALS: BP 91/44
[2016-12-23 11:54] VITALS: BP 115/59
[2016-12-23] MEDS ORDERED: LISINOPRIL40 MG PO (12:52)
[2016-12-23] MEDS ORDERED: BUSPAR10 MG PO (12:52)
[2016-12-23 15:34] VITALS: BP 134/77
[2016-12-23 15:58] LABS: TROP-I INTERPRETATION NEGATIVE; TROPONIN-I < 0.01 ng/mL (0.0-0.30)
[2016-12-24 07:41] LABS: Estimated Average Glucose 120 mg/dL (70-123); HEMOGLOBIN A1c (GLYCOHEMOGLOB) 5.8 % HGB (Below 5.7)
== END 2016-12-23 17:20 | disposition home or self-care (01) ==
LOC: EME 21:36 → EDOF 12-23 02:45 → ENRESERV 12-23 02:46 → 5WEST 12-23 03:48
PROVIDERS: Hospitalist; Internal Medicine
DX: R20.0 Anesthesia of skin (principal); R47.81 Slurred speech; R42 Dizziness and giddiness; R07.89 Other chest pain; J44.0 Chronic obstructive pulmonary disease with (acute) lower respiratory infection; J18.9 Pneumonia, unspecified organism; R11.0 Nausea; M25.511 Pain in right shoulder; M54.6 Pain in thoracic spine; M79.604 Pain in right leg; Z95.0 Presence of cardiac pacemaker; G47.30 Sleep apnea, unspecified; G40.909 Epilepsy, unspecified, not intractable, without status epilepticus; I48.0 Paroxysmal atrial fibrillation; Z79.01 Long term (current) use of anticoagulants; F60.3 Borderline personality disorder; I27.20 Pulmonary hypertension, unspecified; I11.9 Hypertensive heart disease without heart failure; I65.23 Occlusion and stenosis of bilateral carotid arteries; K21.9 Gastro-esophageal reflux disease without esophagitis; I34.1 Nonrheumatic mitral (valve) prolapse; E78.5 Hyperlipidemia, unspecified; F11.20 Opioid dependence, uncomplicated; G89.29 Other chronic pain; M54.41 Lumbago with sciatica, right side; Z87.891 Personal history of nicotine dependence; Z90.710 Acquired absence of both cervix and uterus; Z90.49 Acquired absence of other specified parts of digestive tract; Z88.2 Allergy status to sulfonamides; Z88.0 Allergy status to penicillin; Z88.1 Allergy status to other antibiotic agents; Z88.8 Allergy status to other drugs, medicaments and biological substances
CPT/HCPCS: 70450; 71020; 80048; 80053; 80061; 83036; 84484; 85027; 87040; 93005; 93880; 94640; 99281; 99285; G0378; G8978 GP CI; G8979 GP CH; G8979 GP CI; G8980 GP CI; J1100; J1956; J2405

== ENCOUNTER 2017-01-10 20:43 | Observation (INO) | payer OTHER ==
[~2017-01-10] VITALS: Ht 165.1 cm; Wt 95.6 kg
[2017-01-10 21:02] LABS: HEMATOCRIT 34.2 % (36.0-46.0); MCHC 32.5 G/DL (30.0-36.0); MCV 86.4 FL (83-99); MEAN PLAT.VOLUME 8.9 uM^3 (9.5-12.4); PLATELET COUNT 317 K/uL (156-360); RBC DIS.WIDTH-CV 13.9 % (11.8-14.6); RBC DIS.WIDTH-SD 43.8 % (39-53); RED BLOOD COUNT 3.96 M/uL (3.80-5.20); WHITE BLOOD COUNT 7.3 K/uL (4.1-10.2)
[2017-01-10 21:12] LABS: CHLORIDE 107 mEq/L (99-109); POTASSIUM 4.4 mEq/L (3.7-5.4); SODIUM 142 mEq/L (136-147)
[2017-01-10 21:14] LABS: GLUCOSE 107 mg/dL (70-99)
[2017-01-10 21:15] LABS: ANION GAP 9 MEQ/L (2-14)
[2017-01-10 21:18] LABS: GFR ESTIMATE (CALCULATED) > 59 mL/min/
[2017-01-10 21:19] LABS: UREA NITROGEN (BUN) 9 mg/dL (9-23)
[2017-01-10 21:24] LABS: TROP-I INTERPRETATION NEGATIVE; TROPONIN-I < 0.01 ng/mL (0.0-0.30)
[2017-01-10] MEDS ORDERED: VENTOLIN HFA18 GM IH (23:49)
[2017-01-10] MEDS ORDERED: ALBUTEROL2.5 MG/3 M IH (23:49)
[2017-01-10] MEDS ORDERED: CARDIZEM60 MG PO (23:50)
[2017-01-10] MEDS ORDERED: REQUIP1 MG PO (23:51)
[2017-01-10] MEDS ORDERED: ZOFRAN ODT4 MG PO (23:51)
[2017-01-10] MEDS ORDERED: LISINOPRIL40 MG PO (23:52)
[2017-01-11 02:05] VITALS: BP 137/63
[2017-01-11 02:58] LABS: HDL CHOLESTEROL 36 MG/DL (Desirable>=50); LDL CHOLESTEROL 47 mg/dL (Desirable<100); NON-HDL CHOLESTEROL 80 mg/dL (Desirable<160); TOTAL CHOLESTEROL 116 mg/dL (Desirable<200); TRIGLYCERIDES 163 MG/DL (Normal: <150)
[2017-01-11 05:23] VITALS: BP 129/60
[2017-01-11 07:00] VITALS: BP 125/65
[2017-01-11 08:17] LABS: Estimated Average Glucose 117 mg/dL (70-123); HEMOGLOBIN A1c (GLYCOHEMOGLOB) 5.7 % HGB (Below 5.7)
[2017-01-11 11:43] VITALS: BP 127/60
== END 2017-01-11 15:22 | disposition home or self-care (01) ==
LOC: EME 20:43 → EDOF 01-11 00:11 → ENRESERV 01-11 00:19 → 5WEST 01-11 01:41
PROVIDERS: Physician Assistant Medical
DX: R47.81 Slurred speech (principal); R07.2 Precordial pain; F41.9 Anxiety disorder, unspecified; E78.5 Hyperlipidemia, unspecified; I11.9 Hypertensive heart disease without heart failure; I34.1 Nonrheumatic mitral (valve) prolapse; I48.0 Paroxysmal atrial fibrillation; Z79.01 Long term (current) use of anticoagulants; J44.9 Chronic obstructive pulmonary disease, unspecified; G40.909 Epilepsy, unspecified, not intractable, without status epilepticus; G47.33 Obstructive sleep apnea (adult) (pediatric); G89.29 Other chronic pain; F60.3 Borderline personality disorder; I27.20 Pulmonary hypertension, unspecified; E66.9 Obesity, unspecified; Z68.35 Body mass index [BMI] 35.0-35.9, adult; M54.10 Radiculopathy, site unspecified; K21.9 Gastro-esophageal reflux disease without esophagitis; F32.9 Major depressive disorder, single episode, unspecified; Z95.0 Presence of cardiac pacemaker; Z86.011 Personal history of benign neoplasm of the brain; Z90.49 Acquired absence of other specified parts of digestive tract; Z87.891 Personal history of nicotine dependence; Z88.0 Allergy status to penicillin; Z88.8 Allergy status to other drugs, medicaments and biological substances
CPT/HCPCS: 70450; 71020; 80048; 80061; 83036; 84484; 85027; 93005; 94640; 99202; 99281; 99285; G0378

== ENCOUNTER 2017-02-02 19:40 | Emergency (ER) | payer OTHER ==
[~2017-02-02] VITALS: Ht 165.1 cm; Wt 93.3 kg
[~2017-02-02 19:40] MED LIST changes: +REQUIP1 MG PO; +ZOFRAN ODT4 MG PO
[2017-02-02] MEDS ORDERED: PREDNISONE50 MG PO (20:07)
[2017-02-02] MEDS ORDERED: PERCOCET 5/31 TABLET PO (20:07)
[2017-02-02 20:21] VITALS: BP 130/68
== END 2017-02-02 20:23 | disposition home or self-care (01) ==
LOC: EME 19:40
DX: M54.5 Low back pain (principal); G89.29 Other chronic pain; M41.9 Scoliosis, unspecified; I10 Essential (primary) hypertension; J45.909 Unspecified asthma, uncomplicated; F32.9 Major depressive disorder, single episode, unspecified; K21.9 Gastro-esophageal reflux disease without esophagitis; I34.1 Nonrheumatic mitral (valve) prolapse; R56.9 Unspecified convulsions; Z95.0 Presence of cardiac pacemaker; Z88.1 Allergy status to other antibiotic agents; Z88.2 Allergy status to sulfonamides; Z87.891 Personal history of nicotine dependence
CPT/HCPCS: 99281; 99284; J7512

== ENCOUNTER 2017-02-17 03:36 | Emergency (ER) | payer OTHER ==
[~2017-02-17] VITALS: Ht 165.1 cm; Wt 91.0 kg
[~2017-02-17 03:36] MED LIST changes: +PREDNISONE50 MG PO
[2017-02-17 03:39] VITALS: BP 120/60
[2017-02-17] MEDS ORDERED: VALIUM5 MG PO (04:27)
== END 2017-02-17 04:42 | disposition home or self-care (01) ==
LOC: EME 03:36
DX: M54.5 Low back pain (principal); M79.604 Pain in right leg; G89.29 Other chronic pain; K21.9 Gastro-esophageal reflux disease without esophagitis; I10 Essential (primary) hypertension; J45.909 Unspecified asthma, uncomplicated; F32.9 Major depressive disorder, single episode, unspecified; Z87.891 Personal history of nicotine dependence; Z95.0 Presence of cardiac pacemaker; Z90.49 Acquired absence of other specified parts of digestive tract; Z90.710 Acquired absence of both cervix and uterus; Z86.018 Personal history of other benign neoplasm; Z88.2 Allergy status to sulfonamides; Z88.0 Allergy status to penicillin; Z88.5 Allergy status to narcotic agent; Z88.8 Allergy status to other drugs, medicaments and biological substances
CPT/HCPCS: 99281; 99284; J3010

== ENCOUNTER 2017-03-19 22:21 | Emergency (ER) | payer OTHER ==
[~2017-03-19] VITALS: Ht 165.1 cm; Wt 92.3 kg
[~2017-03-19 22:21] MED LIST changes: +VALIUM5 MG PO
[2017-03-19 22:35] VITALS: BP 153/82
[2017-03-19 23:06] LABS: HEMATOCRIT 36.9 % (36.0-46.0); HEMOGLOBIN 12.1 G/DL (11.9-15.5); MCH 28.3 PG (29.0-34.0); MCHC 32.8 G/DL (30.0-36.0); MCV 86.2 FL (83-99); PLATELET COUNT 358 K/uL (156-360); RBC DIS.WIDTH-CV 13.8 % (11.8-14.6); RBC DIS.WIDTH-SD 43.2 % (39-53); RED BLOOD COUNT 4.28 M/uL (3.80-5.20); WHITE BLOOD COUNT 12.1 K/uL (4.1-10.2)
[2017-03-19 23:16] LABS: CHLORIDE 103 mEq/L (99-109); POTASSIUM 3.8 mEq/L (3.7-5.4); SODIUM 140 mEq/L (136-147)
[2017-03-19 23:17] LABS: GLUCOSE 111 mg/dL (70-99)
[2017-03-19 23:21] LABS: CREATININE 0.8 mg/dL (0.6-1.3); GFR ESTIMATE (CALCULATED) > 59 mL/min/
[2017-03-19 23:22] LABS: UREA NITROGEN (BUN) 15 mg/dL (9-23)
[2017-03-19 23:28] LABS: TROP-I INTERPRETATION NEGATIVE; TROPONIN-I < 0.01 ng/mL (0.0-0.30)
== END 2017-03-20 03:00 | disposition left against medical advice (07) ==
LOC: EME 22:21
DX: R07.9 Chest pain, unspecified (principal); R06.02 Shortness of breath; Z53.21 Procedure and treatment not carried out due to patient leaving prior to being seen by health care provider
CPT/HCPCS: 71046; 80048; 84484; 85027; 93005

== ENCOUNTER 2017-03-23 17:12 | Emergency (ER) | payer OTHER ==
[~2017-03-23] VITALS: Ht 165.1 cm; Wt 91.4 kg
[2017-03-23 18:43] LABS: HEMATOCRIT 35.7 % (36.0-46.0); HEMOGLOBIN 11.4 G/DL (11.9-15.5); MCH 27.8 PG (29.0-34.0); MCHC 31.9 G/DL (30.0-36.0); MCV 87.1 FL (83-99); PLATELET COUNT 328 K/uL (156-360); RBC DIS.WIDTH-SD 44.9 % (39-53); WHITE BLOOD COUNT 8.5 K/uL (4.1-10.2)
[2017-03-23 18:52] LABS: CHLORIDE 106 mEq/L (99-109); POTASSIUM 4.1 mEq/L (3.7-5.4); SODIUM 140 mEq/L (136-147)
[2017-03-23 18:54] LABS: GLUCOSE 78 mg/dL (70-99)
[2017-03-23 18:57] LABS: CREATININE 0.7 mg/dL (0.6-1.3); GFR ESTIMATE (CALCULATED) > 59 mL/min/
[2017-03-23 18:58] LABS: UREA NITROGEN (BUN) 12 mg/dL (9-23)
[2017-03-23 19:05] LABS: TROP-I INTERPRETATION NEGATIVE; TROPONIN-I < 0.01 ng/mL (0.0-0.30)
[2017-03-23 19:23] LABS: APPEARANCE SL.HAZY ((CLEAR)); BILIRUBIN NEGATIVE; BLOOD NEGATIVE; COLOR YELLOW ((YELLOW)); GLUCOSE (STRIP) NEGATIVE; KETONES NEGATIVE; LEUKOCYTES MODERATE; NITRITE NEGATIVE; PROTEIN (STRIP) NEGATIVE; SPECIFIC GRAVITY 1.023 (1.000-1.030)
[2017-03-23 19:34] LABS: BACTERIA RARE /HPF; EPITHELIAL CELLS RARE /HPF; MUCUS TRACE /LPF; UCUL ADDED? YES; WHITE BLOOD CELLS 15-20 /HPF (0-5)
[2017-03-23 19:44] LABS: ALBUMIN 4.1 g/dL (3.2-4.8)
[2017-03-23 19:46] LABS: TOTAL PROTEIN 7.1 g/dL (6.4-8.3)
[2017-03-23 19:48] LABS: TOTAL BILIRUBIN 0.3 mg/dL (0.0-1.0)
[2017-03-23 19:49] LABS: ALKALINE PHOSPHATASE 103 IU/L (3-129)
[2017-03-23 19:52] LABS: ALT (GPT) 18 IU/L (3-49); AST (GOT) 18 IU/L (2-34); DIRECT BILIRUBIN 0.1 mg/dL (0.0-0.3)
[2017-03-23 19:53] LABS: LIPASE 19 U/L (1.0-51.0)
[2017-03-23] MEDS ORDERED: KEFLEX500 MG PO (20:58)
[2017-03-23 21:36] VITALS: BP 136/73
== END 2017-03-23 21:36 | disposition home or self-care (01) ==
LOC: EME 17:12
DX: N39.0 Urinary tract infection, site not specified (principal); R10.11 Right upper quadrant pain; I10 Essential (primary) hypertension; J45.909 Unspecified asthma, uncomplicated; K21.9 Gastro-esophageal reflux disease without esophagitis; R56.9 Unspecified convulsions; I34.1 Nonrheumatic mitral (valve) prolapse; F32.9 Major depressive disorder, single episode, unspecified; Z79.01 Long term (current) use of anticoagulants; Z87.891 Personal history of nicotine dependence; Z87.442 Personal history of urinary calculi; Z90.710 Acquired absence of both cervix and uterus; Z90.49 Acquired absence of other specified parts of digestive tract; Z95.0 Presence of cardiac pacemaker; Z86.011 Personal history of benign neoplasm of the brain; Z88.0 Allergy status to penicillin; Z88.2 Allergy status to sulfonamides; Z88.5 Allergy status to narcotic agent; Z88.8 Allergy status to other drugs, medicaments and biological substances
CPT/HCPCS: 71046; 74177; 80048; 80076; 81003; 83690; 84484; 85027; 87086; 93005; 99281; 99285; J0696; J3010; J7030

== ENCOUNTER 2017-03-25 17:15 | Emergency (ER) | payer OTHER ==
[~2017-03-25] VITALS: Ht 165.1 cm; Wt 90.9 kg
[~2017-03-25 17:15] MED LIST changes: +KEFLEX500 MG PO
[2017-03-25] MEDS ORDERED: FLOVENT DISKUS1 DIS1 IH (20:20)
[2017-03-25 20:21] VITALS: BP 118/70
== END 2017-03-25 20:22 | disposition home or self-care (01) ==
LOC: EME 17:15
DX: S93.602A Unspecified sprain of left foot, initial encounter (principal); X50.9XXA Other and unspecified overexertion or strenuous movements or postures, initial encounter; Y92.002 Bathroom of unspecified non-institutional (private) residence as the place of occurrence of the external cause; Z88.5 Allergy status to narcotic agent; Z88.0 Allergy status to penicillin; Z88.2 Allergy status to sulfonamides; Z88.8 Allergy status to other drugs, medicaments and biological substances
CPT/HCPCS: 73630; 99281; 99284

== ENCOUNTER 2017-05-11 00:09 | Emergency (ER) | payer OTHER ==
[~2017-05-11] VITALS: Ht 165.1 cm; Wt 92.5 kg
[~2017-05-11 00:09] MED LIST changes: +FLOVENT DISKUS1 DIS1 IH
[2017-05-11 01:13] LABS: HEMATOCRIT 37.4 % (36.0-46.0); HEMOGLOBIN 12.6 G/DL (11.9-15.5); MCH 28.3 PG (29.0-34.0); MCHC 33.7 G/DL (30.0-36.0); PLATELET COUNT 351 K/uL (156-360); RBC DIS.WIDTH-CV 14.6 % (11.8-14.6); RBC DIS.WIDTH-SD 44.7 % (39-53); RED BLOOD COUNT 4.45 M/uL (3.80-5.20)
[2017-05-11 01:21] LABS: APPEARANCE SL.HAZY ((CLEAR)); BILIRUBIN NEGATIVE; BLOOD NEGATIVE; COLOR YELLOW ((YELLOW)); GLUCOSE (STRIP) NEGATIVE; KETONES NEGATIVE; LEUKOCYTES MODERATE; NITRITE NEGATIVE; PROTEIN (STRIP) 30; SPECIFIC GRAVITY 1.028 (1.000-1.030)
[2017-05-11 01:25] LABS: ALBUMIN 4.4 g/dL (3.2-4.8); CHLORIDE 108 mEq/L (99-109); POTASSIUM 3.9 mEq/L (3.7-5.4); SODIUM 143 mEq/L (136-147)
[2017-05-11 01:27] LABS: GLUCOSE 122 mg/dL (70-99)
[2017-05-11 01:28] LABS: TOTAL PROTEIN 7.3 g/dL (6.4-8.3)
[2017-05-11 01:29] LABS: TOTAL BILIRUBIN 0.2 mg/dL (0.0-1.0)
[2017-05-11 01:31] LABS: ALKALINE PHOSPHATASE 111 IU/L (3-129); CREATININE 0.8 mg/dL (0.6-1.3); GFR ESTIMATE (CALCULATED) > 59 mL/min/
[2017-05-11 01:32] LABS: UREA NITROGEN (BUN) 9 mg/dL (9-23)
[2017-05-11 01:33] LABS: AST (GOT) 20 IU/L (2-34)
[2017-05-11 01:34] LABS: ALT (GPT) 21 IU/L (3-49); CREATINE KINASE 540 IU/L (1-294)
[2017-05-11 01:40] LABS: BACTERIA 1+ /HPF; EPITHELIAL CELLS RARE /HPF; MUCUS 3+ /LPF; RED BLOOD CELLS 0-5 /HPF (0-5); UCUL ADDED? YES
[2017-05-11] MEDS ORDERED: NORCO 5/3251 TABLET PO (02:32)
[2017-05-11] MEDS ORDERED: MACROBID100 MG PO (02:42)
[2017-05-11 02:46] VITALS: BP 162/98
[2017-05-11 03:23] LABS: ERTH.SED.RATE 57 MM/HR (0-30)
[2017-05-11 08:13] LABS: THYROTROPIN (TSH) 1.1 MIU/L (0.4-5.5)
== END 2017-05-11 02:49 | disposition home or self-care (01) ==
LOC: EME 00:09
PROVIDERS: Physician Assistant
DX: M79.602 Pain in left arm (principal); M79.601 Pain in right arm; G89.29 Other chronic pain; R53.1 Weakness; N39.0 Urinary tract infection, site not specified; G40.909 Epilepsy, unspecified, not intractable, without status epilepticus; Z88.5 Allergy status to narcotic agent; Z88.2 Allergy status to sulfonamides; Z88.8 Allergy status to other drugs, medicaments and biological substances
CPT/HCPCS: 70450; 72125; 80053; 81003; 82550; 84443; 85027; 85652; 87086; 99281; 99284

== ENCOUNTER 2017-06-26 14:41 | Emergency (ER) | payer OTHER ==
[~2017-06-26] VITALS: Ht 165.1 cm; Wt 88.8 kg
[~2017-06-26 14:41] MED LIST changes: +MACROBID100 MG PO; +NORCO 5/3251 TABLET PO
[2017-06-26 15:18] LABS: MCH 29.2 PG (29.0-34.0); MCHC 34.3 G/DL (30.0-36.0); MCV 85.2 FL (83-99); PLATELET COUNT 278 K/uL (156-360); RBC DIS.WIDTH-CV 13.6 % (11.8-14.6); RBC DIS.WIDTH-SD 42.3 % (39-53); RED BLOOD COUNT 4.11 M/uL (3.80-5.20); WHITE BLOOD COUNT 6.8 K/uL (4.1-10.2)
[2017-06-26 15:26] LABS: CHLORIDE 105 mEq/L (99-109); POTASSIUM 4.2 mEq/L (3.7-5.4); SODIUM 141 mEq/L (136-147)
[2017-06-26 15:28] LABS: GLUCOSE 119 mg/dL (70-99)
[2017-06-26 15:32] LABS: CREATININE 0.8 mg/dL (0.6-1.3); GFR ESTIMATE (CALCULATED) > 59 mL/min/
[2017-06-26 15:33] LABS: UREA NITROGEN (BUN) 13 mg/dL (9-23)
[2017-06-26 22:31] VITALS: BP 132/65
== END 2017-06-26 22:47 | disposition home or self-care (01) ==
LOC: EME 14:41
DX: R53.1 Weakness (principal); R51 Headache; R20.0 Anesthesia of skin; R47.81 Slurred speech; M25.511 Pain in right shoulder; K21.9 Gastro-esophageal reflux disease without esophagitis; I11.9 Hypertensive heart disease without heart failure; J44.9 Chronic obstructive pulmonary disease, unspecified; G47.30 Sleep apnea, unspecified; E78.5 Hyperlipidemia, unspecified; G40.909 Epilepsy, unspecified, not intractable, without status epilepticus; F32.9 Major depressive disorder, single episode, unspecified; F31.9 Bipolar disorder, unspecified; G43.909 Migraine, unspecified, not intractable, without status migrainosus; I48.0 Paroxysmal atrial fibrillation; Z79.01 Long term (current) use of anticoagulants; I34.1 Nonrheumatic mitral (valve) prolapse; Z95.0 Presence of cardiac pacemaker; G89.29 Other chronic pain; M54.9 Dorsalgia, unspecified; Z90.49 Acquired absence of other specified parts of digestive tract; Z90.710 Acquired absence of both cervix and uterus; Z88.5 Allergy status to narcotic agent; Z88.2 Allergy status to sulfonamides; Z88.0 Allergy status to penicillin; Z88.8 Allergy status to other drugs, medicaments and biological substances
CPT/HCPCS: 70450; 70496; 70498; 71046; 80048; 85027; 93005; 99281; 99285; J3010; J7030

== ENCOUNTER 2017-08-05 19:38 | Observation (INO) | payer OTHER ==
[~2017-08-05] VITALS: Ht 165.1 cm; Wt 86.0 kg
[2017-08-05 20:28] LABS: HEMATOCRIT 36.1 % (36.0-46.0); HEMOGLOBIN 12.3 G/DL (11.9-15.5); MCHC 34.1 G/DL (30.0-36.0); MCV 85.1 FL (83-99); PLATELET COUNT 285 K/uL (156-360); RBC DIS.WIDTH-SD 43.2 % (39-53); RED BLOOD COUNT 4.24 M/uL (3.80-5.20); WHITE BLOOD COUNT 5.1 K/uL (4.1-10.2)
[2017-08-05 20:35] LABS: ALBUMIN 4.3 g/dL (3.2-4.8)
[2017-08-05 20:36] LABS: CHLORIDE 110 mEq/L (99-109); POTASSIUM 4.2 mEq/L (3.7-5.4); SODIUM 143 mEq/L (136-147)
[2017-08-05 20:38] LABS: GLUCOSE 107 mg/dL (70-99); TOTAL PROTEIN 7.5 g/dL (6.4-8.3)
[2017-08-05 20:40] LABS: TOTAL BILIRUBIN 0.2 mg/dL (0.0-1.0)
[2017-08-05 20:41] LABS: ALKALINE PHOSPHATASE 110 IU/L (3-129)
[2017-08-05 20:42] LABS: CREATININE 0.8 mg/dL (0.6-1.3); GFR ESTIMATE (CALCULATED) > 59 mL/min/
[2017-08-05 20:43] LABS: AST (GOT) 25 IU/L (2-34); UREA NITROGEN (BUN) 9 mg/dL (9-23)
[2017-08-05 20:45] LABS: ALT (GPT) 32 IU/L (3-49)
[2017-08-05 21:53] LABS: D-DIMER ELISA < 150.00 ng/mLDDU (<230)
[2017-08-05 23:02] LABS: INTER. NORMALIZED RATIO 3.2
[2017-08-05 23:05] LABS: PTT 42.7 SEC (25-37)
[2017-08-05 23:59] LABS: APPEARANCE CLOUDY ((CLEAR)); BILIRUBIN NEGATIVE; BLOOD NEGATIVE; COLOR YELLOW ((YELLOW)); GLUCOSE (STRIP) NEGATIVE; KETONES NEGATIVE; LEUKOCYTES NEGATIVE; NITRITE NEGATIVE; PROTEIN (STRIP) NEGATIVE; UROBILINOGEN 0.2 MG/DL (0.2-1.0)
[2017-08-06] VITALS (7 sets, daily range): BP systolic 117–189; BP diastolic 56–91
[2017-08-06 00:46] LABS: AMORPHOUS PHOSPHATE CRYSTALS 3+
[2017-08-06 00:47] LABS: EPITHELIAL CELLS RARE /HPF; RED BLOOD CELLS NONE SEEN /HPF (0-5); WHITE BLOOD CELLS 0-5 /HPF (0-5)
[2017-08-06 00:48] LABS: BACTERIA 2+ /HPF; MUCUS NONE SEEN /LPF; UCUL ADDED? YES
[2017-08-06] MEDS ORDERED: EFFEXOR XR37.5 MG PO (01:30)
[2017-08-06] MEDS ORDERED: ZYRTEC10 M3 PO (01:31)
[2017-08-06] MEDS ORDERED: TOPAMAX50 MG PO (01:31)
[2017-08-06] MEDS ORDERED: QVAR 80 MCG IN7.3 GM IH (01:32)
[2017-08-06] MEDS ORDERED: FLONASE16 G1 BOTH NARES (01:33)
[2017-08-06] MEDS ORDERED: COUGH DROPS1 EACH MM (01:33)
[2017-08-06] MEDS ORDERED: CEFDINIR300 MG PO (01:34)
[2017-08-06] MEDS ORDERED: NIZORAL 2% CREA15 GM TP (01:34)
[2017-08-06] MEDS ORDERED: AVENTYL,PAMELOR10 MG PO (01:35)
[2017-08-06] MEDS ORDERED: XTAMPZA ER13.5 MG PO (01:35)
[2017-08-06 11:22] LABS: INTER. NORMALIZED RATIO 1.4
[2017-08-06 11:36] LABS: HEMATOCRIT 38.6 % (36.0-46.0); HEMOGLOBIN 13.1 G/DL (11.9-15.5); MCV 83.2 FL (83-99)
[2017-08-07 00:09] VITALS: BP 135/60
[2017-08-07 04:15] VITALS: BP 137/85
[2017-08-07 05:16] LABS: HEMOGLOBIN 11.3 G/DL (11.9-15.5); MCH 28.2 PG (29.0-34.0); MCHC 33.2 G/DL (30.0-36.0); MCV 84.8 FL (83-99); PLATELET COUNT 300 K/uL (156-360); RBC DIS.WIDTH-SD 43.6 % (39-53); RED BLOOD COUNT 4.01 M/uL (3.80-5.20); WHITE BLOOD COUNT 7.7 K/uL (4.1-10.2)
[2017-08-07 05:33] LABS: CHLORIDE 109 MEQ/L (99-109); CREATININE 0.7 MG/DL (0.6-1.3); GFR ESTIMATE (CALCULATED) > 59 mL/min/; GLUCOSE 132 mg/dL (70-99); POTASSIUM 4.3 MEQ/L (3.7-5.4); SODIUM 139 MEQ/L (136-147); UREA NITROGEN (BUN) 16 mg/dL (9-23)
[2017-08-07 07:29] VITALS: BP 121/57
== END 2017-08-07 12:20 | disposition home or self-care (01) ==
LOC: EME 19:38 → EDOF 08-06 01:41 → 4SOUTH 08-06 01:41 → ENRESERV 08-06 01:44 → 4SOUTH 08-06 02:18
PROVIDERS: Hospitalist; Physician Assistant
DX: R04.2 Hemoptysis (principal); J20.9 Acute bronchitis, unspecified; N39.0 Urinary tract infection, site not specified; Z87.891 Personal history of nicotine dependence; I48.91 Unspecified atrial fibrillation; J45.909 Unspecified asthma, uncomplicated; F31.9 Bipolar disorder, unspecified; I10 Essential (primary) hypertension; K21.9 Gastro-esophageal reflux disease without esophagitis; Z79.01 Long term (current) use of anticoagulants; R79.1 Abnormal coagulation profile; G47.33 Obstructive sleep apnea (adult) (pediatric); I49.9 Cardiac arrhythmia, unspecified; Z95.0 Presence of cardiac pacemaker; G40.909 Epilepsy, unspecified, not intractable, without status epilepticus; R10.13 Epigastric pain; Z87.440 Personal history of urinary (tract) infections; I34.1 Nonrheumatic mitral (valve) prolapse; E78.5 Hyperlipidemia, unspecified; D32.0 Benign neoplasm of cerebral meninges; G89.29 Other chronic pain; M54.9 Dorsalgia, unspecified; F11.21 Opioid dependence, in remission; Z90.49 Acquired absence of other specified parts of digestive tract; Z90.710 Acquired absence of both cervix and uterus; Z82.49 Family history of ischemic heart disease and other diseases of the circulatory system; Z82.3 Family history of stroke; Z88.0 Allergy status to penicillin; Z88.2 Allergy status to sulfonamides; Z88.5 Allergy status to narcotic agent; Z88.8 Allergy status to other drugs, medicaments and biological substances
CPT/HCPCS: 71046; 71260; 80048; 80053; 81003; 85014; 85018; 85027; 85379; 85610; 85730; 87086; 93005; 94640; 99202; 99281; 99285; G0378; J0696; J2930; J7030

== ENCOUNTER 2017-11-04 18:39 | Observation (INO) | payer OTHER ==
[~2017-11-04] VITALS: Ht 165.1 cm; Wt 78.8 kg
[~2017-11-04 18:39] MED LIST changes: +AVENTYL,PAMELOR10 MG PO; +CEFDINIR300 MG PO; +COUGH DROPS1 EACH MM; +EFFEXOR XR37.5 MG PO; +NIZORAL 2% CREA15 GM TP; +QVAR 80 MCG IN7.3 GM IH; +TOPAMAX50 MG PO; +XTAMPZA ER13.5 MG PO
[2017-11-04 19:41] LABS: HEMATOCRIT 35.5 % (36.0-46.0); MCHC 33.8 G/DL (30.0-36.0); MCV 85.7 FL (83-99); PLATELET COUNT 288 K/uL (156-360); RBC DIS.WIDTH-CV 14.4 % (11.8-14.6); RBC DIS.WIDTH-SD 44.6 % (39-53); RED BLOOD COUNT 4.14 M/uL (3.80-5.20); WHITE BLOOD COUNT 5.7 K/uL (4.1-10.2)
[2017-11-04 19:49] LABS: CHLORIDE 110 mEq/L (99-109); POTASSIUM 3.8 mEq/L (3.7-5.4); SODIUM 144 mEq/L (136-147)
[2017-11-04 19:51] LABS: GLUCOSE 108 mg/dL (70-99)
[2017-11-04 19:55] LABS: CREATININE 0.8 mg/dL (0.6-1.3); GFR ESTIMATE (CALCULATED) > 59 mL/min/; UREA NITROGEN (BUN) 20 mg/dL (9-23)
[2017-11-04 20:02] LABS: TROP-I INTERPRETATION NEGATIVE; TROPONIN-I < 0.01 ng/mL (0.0-0.30)
[2017-11-04 22:59] LABS: SERUM ETHYL ALCOHOL < 10 mg/dL
[2017-11-04 23:02] LABS: ACETAMINOPHEN (TYLENOL) < 10 mcg/mL (10-30); SALICYLATE < 5.0 MG/DL (15-30)
[2017-11-04 23:03] LABS: LIPASE 45 U/L (1.0-51.0)
[2017-11-05 00:37] VITALS: BP 153/73
[2017-11-05 01:30] LABS: HDL CHOLESTEROL 37 MG/DL (Desirable>=50); LDL CHOLESTEROL 139 mg/dL (Desirable<100); NON-HDL CHOLESTEROL 183 mg/dL (Desirable<160); TOTAL CHOLESTEROL 220 mg/dL (Desirable<200); TRIGLYCERIDES 220 MG/DL (Normal: <150)
[2017-11-05 02:59] LABS: TROP-I INTERPRETATION NEGATIVE; TROPONIN-I < 0.01 ng/mL (0.0-0.30)
[2017-11-05 07:58] VITALS: BP 143/81
[2017-11-05 08:51] LABS: BENZODIAZEPINES, URINE SCREEN Negative (200 ng/mL)
[2017-11-05 09:34] LABS: TROP-I INTERPRETATION NEGATIVE; TROPONIN-I < 0.01 ng/mL (0.0-0.30)
[2017-11-05 10:13] LABS: HEMOGLOBIN A1c (GLYCOHEMOGLOB) 5.2 % (Below 5.7)
[2017-11-05 11:38] VITALS: BP 136/8
[2017-11-05 16:27] VITALS: BP 111/58
== END 2017-11-05 18:30 | disposition home or self-care (01) ==
LOC: EME 18:39 → EDOF 22:07 → 4SOUTH 22:07 → EDOF 22:07 → ENRESERV 22:15 → 4SOUTH 11-05 00:06
PROVIDERS: Internal Medicine
DX: R07.89 Other chest pain (principal); I65.21 Occlusion and stenosis of right carotid artery; R53.1 Weakness; R47.81 Slurred speech; R13.10 Dysphagia, unspecified; J45.909 Unspecified asthma, uncomplicated; I48.91 Unspecified atrial fibrillation; Z79.01 Long term (current) use of anticoagulants; R00.1 Bradycardia, unspecified; Z95.0 Presence of cardiac pacemaker; I10 Essential (primary) hypertension; E78.5 Hyperlipidemia, unspecified; G47.33 Obstructive sleep apnea (adult) (pediatric); K21.9 Gastro-esophageal reflux disease without esophagitis; G40.909 Epilepsy, unspecified, not intractable, without status epilepticus; G89.29 Other chronic pain; Z79.891 Long term (current) use of opiate analgesic; I34.1 Nonrheumatic mitral (valve) prolapse; F31.9 Bipolar disorder, unspecified; Z90.49 Acquired absence of other specified parts of digestive tract; Z90.710 Acquired absence of both cervix and uterus; Z88.0 Allergy status to penicillin; Z88.2 Allergy status to sulfonamides; Z88.5 Allergy status to narcotic agent; Z88.8 Allergy status to other drugs, medicaments and biological substances; Z82.49 Family history of ischemic heart disease and other diseases of the circulatory system; Z82.3 Family history of stroke; Z82.0 Family history of epilepsy and other diseases of the nervous system; Z87.891 Personal history of nicotine dependence
CPT/HCPCS: 70450; 71046; 72125; 80048; 80061; 80306 90; 83036; 83690; 84484; 85027; 92523 GN; 92610 GN; 93005; 93306; 93880; 94799; 99281; 99285; G0378; G0480; J1650; J2405; J3010